=== PATIENT | female | born 1965 | race Caucasian/White ===

== ENCOUNTER → 2023-10-06 | Outpatient (REF) | payer MEDICAID, SELFPAY ==
[2023-10-06 08:30] LABS: Hematocrit 33.3 % (37-47); Hemoglobin 10.7 g/dL (12.0-15.0); Mean Corp Hgb Conc 32.1 g/dL (32-36); Mean Corpuscular Volume 99.7 fL (81-99); Mean Platelet Vol. 9.4 fl (6.2-12.0); Platelet Count 424 K/mm3 (150-450); RBC Distribution Width CV 14.9 % (11.6-14.6); RBC Distribution Width SD 54.1 fl (35.1-43.9); Red Blood Count 3.34 M/mm3 (4.2-5.4); White Blood Count 7.5 K/mm3 (4.4-11.0)
[2023-10-06 08:39] LABS: ALB/GLOB Ratio 0.5 RATIO (0.9-2.4); AST(SGOT) 14 U/L (15-37); Alanine Aminotransfer ALT/SGPT 29 U/L (13-56); Albumin, Serum 1.6 g/dL (3.2-5.0); Alkaline Phosphatase 137 U/L (45-117); Anion Gap 6 (5-15); BUN 26 mg/dL (7-18); BUN/Creat Ratio 62.7 RATIO (10-20); Calcium,Total 9.5 mg/dL (8.5-10.1); Chloride 97 mmol/L (98-107); Creatinine, Serum 0.42 mg/dL (0.55-1.02); EST Glomerular Filtration Rate 167 mL/min (>60); Est Glom Filt Rate - Afr Amer 202 mL/min (>60); Globulin 3.5 g/dL (2.2-4.2); Glucose 176 mg/dL (74-106); Potassium 4.7 mmol/L (3.5-5.1); Protein, Total 5.1 g/dL (6.4-8.2); Sodium Level 128 mmol/L (136-145)
== END | disposition home or self-care (01) ==
LOC: OLS.SANC 05:00
PROVIDERS: Visit Provider Internal Medicine
DX: E11.9 Type 2 diabetes mellitus without complications (principal); E21.3 Hyperparathyroidism, unspecified; K74.60 Unspecified cirrhosis of liver
CPT/HCPCS: 36415; 80053; 85027

== ENCOUNTER → 2023-10-08 | Outpatient (REF) | payer MEDICAID, SELFPAY ==
[2023-10-08 07:37] LABS: Hematocrit 33.7 % (37-47); Hemoglobin 10.8 g/dL (12.0-15.0); Mean Corpuscular Hgb 31.3 pg (27.0-32.0); Mean Corpuscular Volume 97.7 fL (81-99); Mean Platelet Vol. 9.5 fl (6.2-12.0); Platelet Count 441 K/mm3 (150-450); RBC Distribution Width CV 14.8 % (11.6-14.6); RBC Distribution Width SD 52.9 fl (35.1-43.9); Red Blood Count 3.45 M/mm3 (4.2-5.4); White Blood Count 6.6 K/mm3 (4.4-11.0)
[2023-10-08 08:04] LABS: ALB/GLOB Ratio 0.5 RATIO (0.9-2.4); AST(SGOT) 26 U/L (15-37); Alanine Aminotransfer ALT/SGPT 28 U/L (13-56); Albumin, Serum 1.6 g/dL (3.2-5.0); Alkaline Phosphatase 135 U/L (45-117); Anion Gap 4 (5-15); BUN 21 mg/dL (7-18); BUN/Creat Ratio 71.9 RATIO (10-20); Calcium,Total 9.1 mg/dL (8.5-10.1); Chloride 98 mmol/L (98-107); Creatinine, Serum 0.29 mg/dL (0.55-1.02); EST Glomerular Filtration Rate 251 mL/min (>60); Est Glom Filt Rate - Afr Amer 303 mL/min (>60); Globulin 3.4 g/dL (2.2-4.2); Glucose 142 mg/dL (74-106); Potassium 4.3 mmol/L (3.5-5.1); Sodium Level 129 mmol/L (136-145)
== END | disposition home or self-care (01) ==
LOC: OLS.SANC 05:00
PROVIDERS: Visit Provider Internal Medicine
DX: E11.9 Type 2 diabetes mellitus without complications (principal); I10 Essential (primary) hypertension
CPT/HCPCS: 36415; 80053; 85027

== ENCOUNTER → 2023-10-13 | Outpatient (REF) | payer MEDICAID, SELFPAY ==
[2023-10-13 08:35] LABS: Mucous, Urine 0 SEEN /hpf (<or=2+); Red Blood Cells-Urine 0 SEEN /hpf (0-5); Squamous Epithelial Cells - UA 0 SEEN /hpf (5-10)
[2023-10-13 08:40] LABS: Color, Urine Yellow (Yellow); Glucose, Dipstick Normal (Normal); Ketone-Dipstick Negative (Negative); Leukocyte Esterase-Dipstick 500 /ul (Negative); Nitrite-Dipstick Negative (Negative); Occult Blood-Urine 250 /ul (Negative); Protein-Dipstick 30 mg/dl (Negative); Specific Gravity, Urine 1.015 (1.002-1.030); Urine Bilirubin Dipstick Negative (Negative); Urine Clarity Sl. Cloudy (Clear); Urine Urobilinogen Normal (Normal)
[2023-10-13 08:50] LABS: Bacteria 3+ /hpf (None Seen); Triple Phosphate Crystals Ur 2+ /hpf (<or=1+); White Blood Cells 5-10 SEEN /hpf (0-5)
== END | disposition home or self-care (01) ==
LOC: OLS.SANC 04:05
PROVIDERS: Visit Provider Internal Medicine
DX: E11.9 Type 2 diabetes mellitus without complications (principal); I10 Essential (primary) hypertension; R39.9 Unspecified symptoms and signs involving the genitourinary system
CPT/HCPCS: 81001; 87077; 87086; 87088; 87186

== ENCOUNTER → 2023-10-22 | Outpatient (REF) | payer MEDICAID, SELFPAY ==
[2023-10-22 08:59] LABS: Mucous, Urine 0 SEEN /hpf (<or=2+); Squamous Epithelial Cells - UA 0 SEEN /hpf (5-10)
[2023-10-22 09:23] LABS: Color, Urine Amber (Yellow); Glucose, Dipstick Normal (Normal); Ketone-Dipstick 5 mg/dl (Negative); Leukocyte Esterase-Dipstick 500 /ul (Negative); Nitrite-Dipstick Negative (Negative); Occult Blood-Urine 250 /ul (Negative); Protein-Dipstick 500 mg/dl (Negative); Urine Bilirubin Dipstick Negative (Negative); Urine Clarity Turbid (Clear); Urine Urobilinogen Normal (Normal); Urine pH 6.5 (5.0 - 8.0)
[2023-10-22 09:38] LABS: Red Blood Cells-Urine > 100 SEEN /hpf (0-5); White Blood Cells >100 SEEN /hpf (0-5)
[2023-10-22 09:39] LABS: Bacteria 4+ /hpf (None Seen)
[2023-10-22 09:40] LABS: Uric Acid Crystals Ur 1+ /hpf (<or=1+)
== END | disposition home or self-care (01) ==
LOC: OLS.SANC 05:00
PROVIDERS: Visit Provider Internal Medicine
DX: R31.9 Hematuria, unspecified (principal); E11.9 Type 2 diabetes mellitus without complications; I10 Essential (primary) hypertension; Z79.899 Other long term (current) drug therapy
CPT/HCPCS: 81001; 87077; 87086; 87088; 87186

== ENCOUNTER → 2023-11-08 | Outpatient (REF) | payer MEDICAID, SELFPAY ==
[2023-11-08 08:47] LABS: Hematocrit 30.5 % (37-47); Hemoglobin 9.3 g/dL (12.0-15.0); Mean Corp Hgb Conc 30.5 g/dL (32-36); Mean Corpuscular Hgb 29.2 pg (27.0-32.0); Mean Corpuscular Volume 95.6 fL (81-99); Mean Platelet Vol. 8.9 fl (6.2-12.0); Platelet Count 247 K/mm3 (150-450); RBC Distribution Width CV 17.6 % (11.6-14.6); RBC Distribution Width SD 55.2 fl (35.1-43.9); Red Blood Count 3.19 M/mm3 (4.2-5.4); White Blood Count 6.2 K/mm3 (4.4-11.0)
[2023-11-08 09:10] LABS: ALB/GLOB Ratio 0.4 RATIO (0.9-2.4); AST(SGOT) 26 U/L (15-37); Alanine Aminotransfer ALT/SGPT 25 U/L (13-56); Albumin, Serum 1.5 g/dL (3.2-5.0); Alkaline Phosphatase 155 U/L (45-117); Anion Gap 5 (5-15); BUN 15 mg/dL (7-18); BUN/Creat Ratio 55.6 RATIO (10-20); Calcium,Total 9.4 mg/dL (8.5-10.1); Chloride 101 mmol/L (98-107); Creatinine, Serum 0.27 mg/dL (0.55-1.02); EST Glomerular Filtration Rate 274 mL/min (>60); Est Glom Filt Rate - Afr Amer 332 mL/min (>60); Globulin 3.4 g/dL (2.2-4.2); Glucose 137 mg/dL (74-106); Potassium 3.9 mmol/L (3.5-5.1); Protein, Total 4.9 g/dL (6.4-8.2); Sodium Level 131 mmol/L (136-145)
== END | disposition home or self-care (01) ==
LOC: OLS.SANC 05:00
PROVIDERS: Visit Provider Internal Medicine
DX: E11.9 Type 2 diabetes mellitus without complications (principal); I10 Essential (primary) hypertension; E21.3 Hyperparathyroidism, unspecified
CPT/HCPCS: 36415; 80053; 85027

== ENCOUNTER → 2023-11-10 | Outpatient (REF) | payer MEDICAID, SELFPAY ==
[2023-11-10 08:45] LABS: Mucous, Urine 0 SEEN /hpf (<or=2+); Squamous Epithelial Cells - UA 0 SEEN /hpf (5-10)
[2023-11-10 08:51] LABS: Color, Urine Yellow (Yellow); Glucose, Dipstick Normal (Normal); Ketone-Dipstick 5 mg/dl (Negative); Leukocyte Esterase-Dipstick 500 /ul (Negative); Nitrite-Dipstick Negative (Negative); Occult Blood-Urine 250 /ul (Negative); Protein-Dipstick 100 mg/dl (Negative); Specific Gravity, Urine 1.015 (1.002-1.030); Urine Bilirubin Dipstick Negative (Negative); Urine Clarity Clear (Clear); Urine Urobilinogen 1 mg/dl (Normal); Urine pH 6.5 (5.0 - 8.0)
[2023-11-10 09:18] LABS: Amorphous Sediment 1+; Bacteria 2+ /hpf (None Seen); Red Blood Cells-Urine 25-50 SEEN /hpf (0-5); White Blood Cells 25-50 SEEN /hpf (0-5)
== END | disposition home or self-care (01) ==
LOC: OLS.SANC 05:00
PROVIDERS: Visit Provider Internal Medicine
DX: R31.9 Hematuria, unspecified (principal); E11.9 Type 2 diabetes mellitus without complications; I10 Essential (primary) hypertension; Z79.899 Other long term (current) drug therapy
CPT/HCPCS: 81001; 87077; 87086; 87088; 87186

== ENCOUNTER → 2024-01-04 | Outpatient (REF) | payer MEDICAID, SELFPAY ==
[2024-01-05 09:04] LABS: Mucous, Urine 0 SEEN /hpf (<or=2+); Squamous Epithelial Cells - UA 0 SEEN /hpf (5-10)
[2024-01-05 10:27] LABS: Color, Urine Yellow (Yellow); Glucose, Dipstick Normal (Normal); Ketone-Dipstick Negative (Negative); Leukocyte Esterase-Dipstick 500 /ul (Negative); Nitrite-Dipstick Positive (Negative); Occult Blood-Urine 250 /ul (Negative); Protein-Dipstick 30 mg/dl (Negative); Urine Bilirubin Dipstick Negative (Negative); Urine Clarity Sl. Cloudy (Clear); Urine Urobilinogen Normal (Normal)
[2024-01-05 11:15] LABS: Bacteria 2+ /hpf (None Seen); Red Blood Cells-Urine 25-50 SEEN /hpf (0-5); White Blood Cells 25-50 SEEN /hpf (0-5)
== END | disposition home or self-care (01) ==
LOC: OLS.SANC 15:00
DX: N39.0 Urinary tract infection, site not specified (principal)
CPT/HCPCS: 81001; 87077; 87086; 87088; 87186

== ENCOUNTER → 2024-01-07 | Outpatient (REF) | payer MEDICAID, SELFPAY ==
[2024-01-13 00:07] LABS: Zinc, Plasma or Serum 98 ug/dL (44-115)
== END | disposition home or self-care (01) ==
LOC: OLS.SANC 05:00
PROVIDERS: Visit Provider Internal Medicine
DX: E11.9 Type 2 diabetes mellitus without complications (principal); I10 Essential (primary) hypertension
CPT/HCPCS: 36415; 84630

== ENCOUNTER → 2024-01-13 | Outpatient (REF) | payer MEDICAID, SELFPAY ==
[2024-01-13 08:57] LABS: Hematocrit 28.1 % (37-47); Hemoglobin 7.9 g/dL (12.0-15.0); Mean Corp Hgb Conc 28.1 g/dL (32-36); Mean Corpuscular Hgb 24.7 pg (27.0-32.0); Mean Corpuscular Volume 87.8 fL (81-99); Mean Platelet Vol. 10.8 fl (6.2-12.0); Platelet Count 337 K/mm3 (150-450); RBC Distribution Width SD 54.2 fl (35.1-43.9); White Blood Count 6.5 K/mm3 (4.4-11.0)
[2024-01-13 09:37] LABS: Vitamin B12 1453 pg/mL (211-911); Vitamin D,25 Hydroxy 20.4 ng/mL
[2024-01-13 11:06] LABS: ALB/GLOB Ratio 0.4 RATIO (0.9-2.4); AST(SGOT) 25 U/L (15-37); Alanine Aminotransfer ALT/SGPT 16 U/L (13-56); Albumin, Serum 1.7 g/dL (3.2-5.0); Alkaline Phosphatase 145 U/L (45-117); Anion Gap 4 (5-15); BUN 11 mg/dL (7-18); Calcium,Total 9.6 mg/dL (8.5-10.1); Chloride 108 mmol/L (98-107); Creatinine, Serum 0.32 mg/dL (0.55-1.02); EST Glomerular Filtration Rate 222 mL/min (>60); Est Glom Filt Rate - Afr Amer 269 mL/min (>60); Ferritin 8 ng/mL (8-252); Globulin 3.9 g/dL (2.2-4.2); Glucose 168 mg/dL (74-106); Iron 17 ug/dL (50-170); Magnesium 2.2 mg/dL (1.6-2.6); Potassium 3.8 mmol/L (3.5-5.1); Protein, Total 5.6 g/dL (6.4-8.2); Sodium Level 138 mmol/L (136-145)
[2024-01-19 20:08] LABS: Vitamin B1, Thiamine 190.6 nmol/L (66.5-200.0); Zinc, Plasma or Serum 55 ug/dL (44-115)
== END | disposition home or self-care (01) ==
LOC: OLS.SANC 05:00
DX: I10 Essential (primary) hypertension (principal); E11.9 Type 2 diabetes mellitus without complications; J18.8 Other pneumonia, unspecified organism; N20.0 Calculus of kidney; K90.9 Intestinal malabsorption, unspecified
CPT/HCPCS: 36415; 80053; 82306; 82607; 82728; 82746; 83540; 83735; 84425; 84630; 85027